=== PATIENT | male | born 1975 | race Caucasian/White ===

== ENCOUNTER → 2021-10-23 10:49 | Outpatient (CLI) | payer BC, SELFPAY ==
[2021-10-23 12:12] LABS: Alanine Aminotransferase 26 U/L (12-78); Albumin Level 4.1 g/dl (3.5-5.0); Albumin/Globulin Ratio 1.7 (1.1-1.8); Alkaline Phosphatase 87 U/L (38-126); Anion Gap 8.5 mEq/L (5-15); Aspartate Amino Transferase 33 U/L (17-59); Bilirubin,Total 2.7 mg/dl (0.2-1.3); Blood Urea Nitrogen 21 mg/dl (9-20); Calcium 9.2 mg/dl (8.4-10.2); Carbon Dioxide 29 mmol/L (22.0-30.0); Chloride 106 mmol/L (98-107); Chol/HDL Ratio 3.4 (1-3.5); Cholesterol 200 mg/dl (140-200); Estimated Glomerular Filt Rate 72 ml/min (>60); GFR (African American) 87 ML/MIN (>60); Globulin 2.4 g/dL (1.3-3.2); Glucose 103 mg/dl (74-100); HDL Cholesterol 59 mg/dl (40-60); Potassium 4.5 mmoL/L (3.5-5.1); Sodium 139 mmol/L (136-145); Total Protein,Serum 6.5 g/dl (6.3-8.2); Triglycerides 46 mg/dl (30-150); VLDL Cholesterol 9 mg/dL (0-40)
[2021-10-23 12:23] LABS: Direct LDL Cholesterol 110.52 mg/dL (100-129)
[2021-10-23 12:43] LABS: Thyroid Stimulating Hormone 1.42 uIU/mL (0.465-4.68)
[2021-10-23 14:16] LABS: Microalbumin/Creatinine Ratio 4.2
[2021-10-23 14:21] LABS: Creatinine,Urine Random 181 mg/dL (Not Estab.)
== END ==
PROVIDERS: PCP Family Medicine; Visit Provider Family Medicine
DX: E10.9 Type 1 diabetes mellitus without complications (principal)
CPT/HCPCS: 36415; 80053; 80061; 82043; 82570; 84443

== ENCOUNTER 2024-10-23 08:58 | Emergency (ER) | payer SELFPAY ==
--- OUTSIDE RECORDS SUMMARY | 2024-03-04 10:30 | XMS_ITS ---
Author Organization [facility] Address [facility] [address] [place] [id number] Care Team Providers Care Sonar Technician Name Role Phone Keon Villanueva Primary Care Provider Damian Mock [phone] Allergies Allergen (clinical drug ingredient) Drug/Non Drug Allergy documented on EMR Reaction Allergy Type Onset Date Status hydrocortisone Cortizone-10 raise blood sugar Drug Allergy Active REASON FOR VISIT cdl physical Encounters Encounter Location Date Provider Diagnosis [facility] [address] [place] [phone] 03/04/2024 Damian Mock Plan Of Treatment No Information Progress Notes * DENISE JANSEN IIOB:[birth year] (49 yo M)Acc No.[id number]:03/04/2024 Physical Patient: GRISEL FARFAN II Provider: Malick Mock M.D. :1975 A ge:48 Y S ex:Male Date:03/04/2024 Address:[facility] [address], [id number] Pcp:Keon Villanueva Subjective: * Chief Complaints: * 1 . Cdl physical. 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 * ROS: D ERMATOLOGY: no R timbo. n o H mohsen. G ASTROENTEROLOGY: no N ausea. n o V omiting. U ROLOGY: no D ifficulty urinating. n o B lood in urine. * Medical History: T ype 1 Diabetes, Diabetic Retinopathy. * Surgical History: T onsillectomy , Appendectomy 2005, Cholecystectomy 06/2012. * Hospitalization/Major Diagno stic Procedure: D iabetes , Low Blood Sugar- [facility] 08/2013. * Family History: F ather: alive 57 yrs. M other: alive 57 yrs. 1 sister(s) . 3 son(s) . . * Social History: C URRENT TOBACCO USE S moking Status: Patient does NOT smoke. C affeine: yes, frequency:diet mt. dew QD. Home smoke detector use: yes. Marital Status: . Past smoking status: no. Alcohol: No. Sexually active: yes. * Allergies: C ortizone-10: raise blood sugar. Objective: * Vitals: Assessment: Plan: * Treatment: * Procedure Codes: 8 1002 Urinalysis, no micro * Images: Billing Information: * Visit Code: * Procedure Codes: 65321 Urinalysis, no micro. * Electronic signature of Tawana Mock MD on 10/23/2024 at 09:13 AM EDT Sign off status: Pending * Provider: Malick Mock M.D. 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
--- OUTSIDE RECORDS SUMMARY | 2024-03-06 06:45 | XMS_ITS ---
Author Organization [facility] Address [address] [facility] [address] [place] [id number] Care Team Providers Care Trustee Of Estate Name Role Phone Keon Villanueva Primary Care Provider Damian Mock Unavailable [phone] Allergies Allergen (clinical drug ingredient) Drug/Non Drug Allergy documented on EMR Reaction Allergy Type Onset Date Status hydrocortisone Cortizone-10 raise blood sugar Drug Allergy Active Results Component Value Reference Range Notes Urinalysis - Inhouse Reviewed date:03/06/2024 11:11:08 AM Interpretation: Performing Lab: Notes/Report: Color/Clarity yellow/clear Leuk Neg Nitrite Neg Urobili 3.2 Protein Neg pH 5.5 Blood Neg Sp. Gr. 1.020 Ketone Neg Bili Neg Gluc 2+ REASON FOR VISIT CDL CPX Medications Medication SIG (Take, Route, Frequency, Duration) Notes Start Date End Date Status Basaglar KwikPen 100 UNIT/ML as directed Subcutaneous Act tea Dexcom G6 Transmitter - as directed Active HumaLOG 100 UNIT/ML as directed Injection Active Farxiga 10 MG Take 1 tablet by once daily; Duration: 90 Active Dexcom G6 Sensor - as directed Active Vital Signs Blood pressure systolic 120 mm Hg 03/06/20 24 Blood pressure diastolic 78 mm Hg 024 Heart Rate 59 /min 03/06/2024 Height 74.50 in 03/06/2024 Weight 248 lbs 03/06/2024 BMI 31.41 kg/m2 03/06/2024 Encounters Encounter Location Date Provider Diagnosis [facility] [address] [facility] [address] [place] [phone] 03/06/2024 Damian Mock Encounter for Depart ment of Transportation (DOT) examination for coral license Z02.4 Assessments Encounter Date Diagnosis (ICD Code) Assessment Notes Treatment Notes Treatment Clinical Notes Section Notes 03/06/2024 Encounter for Department of Transportation (DOT) examination for coral license (ICD-10 - Z02.4) Plan Of Treatment Next Appt Details Follow Up: prn, Reason: Progress Notes * DENISE JANSEN IIOB:[birth year] (49 yo M)Acc No.[id number]:03/06/2024 Physical Patient: GRISEL FARFAN II Provider: Malick Mock M.D. :1975 A ge:48 Y S ex:Male Date:03/06/2024 Address:[address] [place] [address], [place], [id number] Pcp:Keon Villanueva Subjective: * Chief Complaints: * 1 . CDL CPX. * HPI: H PI: 48 year old [...] 06/2012. * Hospitalization/Major Diagno stic Procedure: D iaazar , Low Blood Sugar- [facility] ER 08/2013. * Family History: F ather: alive 57 yrs. M other: alive 57 yrs. 1 sister(s) . 3 son(s) . . * Social History: C URRENT TOBACCO USE S moking Status: Patient does NOT smoke. C affeine: yes, frequency:diet mt. dew QD. Home smoke detector use: yes. Marital Status: . Past smoking status: no. Alcohol: No. Sexually active: yes. * Medications: T aking Basaglar KwikPen 100 UNIT/ML Solution Pen-injector as directed Subcutaneous , Taking HumaLOG 100 UNIT/ML Solution as directed Injection , Taking Dexcom G6 Transmitter - Miscellaneous as directed , Taking Dexcom G6 Sensor - Miscellaneous as directed , Taking Farxiga 10 MG Tablet Take 1 tablet by mouth once daily , Medication List reviewed and reconciled with the patient * Allergies: C ortizone-10: raise blood sugar. Objective: * Vitals: W t:248, Temp:98.0, BP:120/78, HR:59, Nurse:boni, Ht: 74.50, Visual Acuity: Left eye:20/15, Right eye:20/15, Both eyes:20/15, Color:Pass, Comments:With glasses, BMI:31.41. * Examination: G eneral Examination: General Appearance: N AD. H EENT: u nremarkable.?Oral cavity: n o lesions, mucosa moist and WNL, no erythema. N hailee: s upple, no lymphadenopathy. C hest: n ormal shape and expansion. H eart: R SR. L ungs: c lear to auscultation. A bdomen: bowel sounds present, soft and nontender. N eurologic Exam: I ntact, gait normal. S kin: n ormal, no rash. P eripheral pulses: n ormal (2+) bilaterally. E xtremities: n o leg edema. Assessment: * Assessment: 1. E ncounter for Department of Transportation (DOT) examination for coral license - Z02.4 (Primary) Plan: * Treatment: Value Reference Range C olor/Clarity yellow/clear * L euk Neg * N itrite Neg * U robili 3.2 * P rotein Neg * p H 5.5 * B lood Neg * S p. Gr. 1.020 * K etone Neg * B alyce Neg * G nhan 2+ * Nela Guthrie 03/06/2024 10:41: 25 AM > , Provider reviewed results while patient in office. * Procedure Codes: 8 1002 Urinalysis, no micro, 36838 VISUAL ACUITY SCREEN * Follow Up: p rn * Images: Billing Information: * Visit Code: 72300 Preventive Care Est Pt Age 40-64. * Procedure Codes: 20376 Urinalysis, no micro. 54314 VISUAL ACUITY SCREEN. * Electronic signature of Tawana n Paoli , MD on 10/23/2024 at 09:13 AM EDT Sign off status: Pending * Provider: Malick Mock M.D. 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
[2024-10-23 09:13] VITALS: BP 136/82; PULSE 98; RESP 20; TEMP 37.1; O2SAT 97; BMI 31.4
--- OUTSIDE RECORDS SUMMARY | 2024-10-23 09:13 | XMS_ITS | Encounter Summary ---
[facility] Address [address] [phone] Care Team Providers Care Inbound Call Center Agent Name Role Phone Bernrado Villanueva MD Primary Care Provider [phone] Reason for Visit * Reason Comments Med Refill Encounter Details Date Type Department Care Team (Late st Contact Info) Description 09/08/2024 Refill [facility] ENDOCRINOLOGY [address] [facility] [address] [place] [phone] Meghan Lovelace PA 3084 [facility] [address] [place], [place] [phone] Social History Tobacco Use Types Packs/Day Years Used Date Smoking Tobacco: Never Smokeless Tobacco: Never Alcohol Use Standard Drinks/Week Comments Never 0 (1 standard drink = 0.6 oz pur e alcohol) AUDIT-C Answer Date Recorded Q1: How often do you have a drink containing alc ohol? Never 02/17/2020 Average Number of Drinks Not on file 020 Frequency of Binge Drinking Not on file 01/26 Sex and Gender Information Value Date Recorded Sex Assigned at Not on file Legal Sex Male 2:53 PM EDT Gender Identity Not on file Sexual Orientation Not on file documented as of this encounter Miscellaneous Notes * Telephone Encounter - Pankaj Regan MA - 09/09/2024 11:40 AM EDT Rx Refill Note Requested Prescriptions Pending Prescriptions Disp Refills HumaLOG KwikPen 100 UNIT/ML solution pen-injector [Pharmacy Med Name: HumaLOG KwikPen 100 UNIT/ML Subcutaneous Solution Pen-injector] 80 mL 0 Sig: INJECT 1 UNIT UNDER THE SKIN PER 12 GRAMS OF CARBS PLUS CORRECTION (MAX DAILY DOSE 80 UNITS) Last office visit with prescribing clinician: 02/27/2024 Next office visit with prescribing clinician: 12/17/2024 } Pankaj Regan MA 09/09/24, 11:41 EDT documented in this encounter Plan of Treatment Upcoming Encounters Date Type Department Care Team (Late st Contact Info) Description 12/17/2024 10:45 AM EDT Office Visit [facility] ENDOCRINOLOGY [address] [phone] Shawn Dunn MD 1775 [facility] [place] [address] documented as of this encounter Visit Diagnoses Not on filedocumented in this encounter Care Teams Inbound Call Center Agent Relationship Specialty Start Date End Date Bernardo Villanueva MD [facility] [facility] [address] [place] [phone] PCP - General Family Medicine 11/03/20 documented as of this encounter
--- OUTSIDE RECORDS SUMMARY | 2024-10-23 09:13 | XMS_ITS | Encounter Summary ---
Author Organization [facility] Address [address] [place] [address] Care Team Providers Care Sagger Filler Name Role Phone Bernardo Villanueva MD Primary Care Provider [phone] Reason for Visit * Reason Onset Date Comments MEDCONCERN 09/16/2024 Encounter Details Date Type Department Care Team (Late st Contact Info) Description 09/16/2024 Telephone [facility] END[facility] [employer] [address] [phone] Shawn Dunn MD [facility] [employer] [address] [address] MEDCONCERN Social History Tobacco Use Types Packs/Day Years [...] encounter Miscellaneous Notes * Telephone Encounter - Mikael Nina MA - 09/16/2024 1:29 PM EDT Rx Refill Note Requested Prescriptions Pending Prescriptions Disp Refills Insulin Pen Needle (BD Pen Needle Short Ultrafine) 31G X 8 MM misc 200 each 1 Sig: USE UP TO 9 TIMES DAILY WITH INSULIN Continuous Glucose Sensor (Dexcom G6 Sensor) 9 each 1 Sig: Use Every 10 (Ten) Days. Continuous Glucose Transmitter (Dexcom G6 Transmitter) misc 1 each 1 Sig: Use 1 each Every 3 (Three) Months. HumaLOG KwikPen 100 UNIT/ML solution pen-injector 80 mL 1 Sig: INJECT 1 UNIT UNDER THE SKIN PER 12 GRAMS OF CARBS PLUS CORRECTION (MAX DAILY DOSE 80 UNITS) insulin glargine (LANTUS, SEMGLEE) 100 UNIT/ML injection 45 mL 1 Sig: Inject 50 units daily. Last office visit with prescribing clinician: 02/27/2024 Next office visit with prescribing clinician: 12/17/2024 Mikael Nina MA 09/16/24, 13:29 EDT * Telephone Encounter - Concepcion Spann RegSched Rep - 09/16/2024 8:43 AM EDT Caller: Chau Wallis Relationship: Self Best call back number: Telephone Information: What was the call regarding: PT CALLED WANTING TO SEND ALL OF PT PRESCRIPTIONS TO [facility] [address]-6 - [phone] - [phone] FX FOR 90 DAY SUPPLIES. PLEASE ADVISE. documented in this encounter Plan of Treatment Upcoming Encounters Date Type Department Care Team (Late st Contact Info) Description 12/17/2024 10:45 AM EDT Office Visit [facility] ENDOCR[facility]Y [address] [phone] Shawn Dunn MD [address] [address] documented as of this encounter Visit Diagnoses Not on filedocumented in this encounter Care Teams Sagger Filler Relationship Specialty Start Date End Date Bernardo Villanueva MD [facility] [place] [facility] 36 E [facility] [address] [place] [address] PCP - General Family Medicine 11/03/20 documented as of this encounter
--- OUTSIDE RECORDS SUMMARY | 2024-10-23 09:13 | XMS_ITS | Encounter Summary ---
[facility] Address [address] [place] [address] Care Team Providers Care Activities Aide Name Role Phone Bernardo Villanueva MD Primary Care Provider [phone] Reason for Visit * Reason Onset Date Comments MED REFILL ISSUE 09/18/2024 Encounter Details Date Type Department Care Team (Late st Contact Info) Description 09/18/2024 Telephone [facility] ENDOCRINOLOGY [address] [phone] Shawn Dunn MD [facility] [address] [address] MED REFILL ISSUE Social History Tobacco Use Types Packs/Day Years [...] encounter Miscellaneous Notes * Telephone Encounter - Shawn Dunn MD - 09/18/2024 9:42 AM EDT Tresiba sent; The most pens I can send is 400.. I sent that * Telephone Encounter - Maria G Pritchett MA - 09/18/2024 8:58 AM EDT Received denial from insurance. It states that Tresiba and Toujeo are preferred. * Telephone Encounter - Nilda Alberts RegSched Rep - 09/18/2024 8:28 AM EDT Caller: Chau Wallis Relationship to patient: Self Best call back number: [phone] Patient is needing: PT SAID HE WAS SUPPOSED TO RECEIVE A 90 DAY SUPPLY OF THE Insulin Pen Needle (BD Pen Needle Short Ultrafine) 31G X 8 MM misc BUT ONLY 200 WAS FILLED INSTEAD OF ABOUT 800. PLEASE ADVISE. PT IS ALSO STRUGGLING TO GET THE insulin glargine (LANTUS, SEMGLEE) 100 UNIT/ML injection REFILLED,AND WANTED TO SEE IF THERE WAS SOMETHING ELSE LIKE TOUJEO THAT WOULD BE COVERED BY HIS INSURANCE. PT IS ON HIS LAST INSULIN PEN. PLEASE ADVISE. documented in this encounter Plan of Treatment Upcoming Encounters Date Type Department Care Team (Late st Contact Info) Description 12/17/2024 10:45 AM EDT Office Visit [facility] ENDOCR[facility]OLOG[facility] 1774 [facility] 50 [place] [phone] Shawn Dunn MD 177 [facility] 50 [place] [address] documented as of this encounter Visit Diagnoses Not on filedocumented in this encounter Care Teams Activities Aide Relationship Specialty Start Date End Date Bernardo Villanueva MD 1210 [facility] 36 E [facility] [address] [place] [address] PCP - General Family Medicine 11/03/20 documented as of this encounter
--- OUTSIDE RECORDS SUMMARY | 2024-10-23 09:13 | XMS_ITS | Encounter Summary ---
Author Organization [facility] Address [address] [place] [address] Care Team Providers Care Bridal Consultant Name Role Phone Bernardo Villanueva MD Primary Care Provider [phone] Encounter Details Date Type Department Care Team (Late st Contact Info) Description 09/11/2024 Refill [facility] ENDOCRINOLOGY 3084 [facility] 100 [place] [address] Shawn Dunn MD 5578 [facility] 50 [place], [place] [phone] Social History Tobacco Use Types Packs/Day Years [...] encounter Miscellaneous Notes * Telephone Encounter - Trish Guo MA - 09/11/2024 3:53 PM EDT Rx Refill Note Requested Prescriptions Pending Prescriptions Disp Refills insulin glargine (LANTUS, SEMGLEE) 100 UNIT/ML injection 15 mL 2 Sig: Inject 50 units daily. Last office visit with prescribing clinician: 02/27/2024 Next office visit with prescribing clinician: 12/17/2024 Trish Guo MA 09/11/24, 15:53 EDT * Telephone Encounter - Devan Haider PCT - 09/11/2024 2:41 PM EDT [facility] [place] CALLED REQUESTING RX FOR LANTUS BE SENT IN FOR THIS PT. SEMGLEE IS NOT COVERED AND PT WANTS US TO DO A PA FOR LANTUS. documented in this encounter Plan of Treatment Upcoming Encounters Date Type Department Care Team (Late st Contact Info) Description 12/17/2024 10:45 AM EDT Office Visit [facility] ENDOCRINOLOGY [address] [phone] Shawn Dunn MD [address] [address] documented as of this encounter Visit Diagnoses Not on filedocumented in this encounter Care Teams Bridal Consultant Relationship Specialty Start Date End Date Bernardo Villanueva MD 1210 [facility] [address] [place] [address] PCP - General Family Medicine 11/03/20 documented as of this encounter
--- OUTSIDE RECORDS SUMMARY | 2024-10-23 09:13 | XMS_ITS | Patient Health Record ---
[facility] Address [address] [place] [id number] Care Team Providers Care Finishing Pan Operator Name Role Phone Keon Villanueva Primary Care Provider [phone] Damian Mock Unavailable [phone] Allergies Allergen (clinical drug ingredient) Drug/Non Drug [...] 1.020 Ketone Neg Bili Neg Gluc 2+ Reason For Referral No Information Medications Medication SIG (Take, Route, Frequency, Duration) Notes Start Date End Date Status Basaglar KwikPen 100 UNIT/ML as directed Subcutaneous Act tea Dexcom G6 Transmitter - as directed Active HumaLOG 100 UNIT/ML as directed Injection Active Dexcom G6 Sensor - as directed Active Farxiga 10 MG Take 1 tablet by julio th once daily for 90 days; Duration: 90 Active Immunizations Vaccine Route Administration Date Status Comme nts COVID 19 Pfizer Unknown 06/03/2020 Administered COVID 19 Pfizer Unknown 07/01/2020 Administered Problems Problem Type SNOMED Code ICD Code Onset Dates Problem Status W/U Status Risk Notes Problem Hyperlipidemia (50775832) Hyperlipidemia (272.4) Active confirmed Problem Retinopathy (03732530) Retinopathy (362.10) Active confirmed Problem Type II diabetes mellitus without complication (651135997) Diabetes (E11.9) Active confirmed Problem Type I diabetes mellitus (32058844) Type I diabetes mellitus (E10.9) Active confirmed Problem Male erectile disorder (171466800) Male erectile disorder (N52.9) Active confirmed Problem Type I diabetes mellitus without complication (892556490) Diabetes mellitus, insulin dependent (IDDM), controlled (250.01) Active confirmed Problem Hyperglycemia due to type 2 diabetes mellitus (096383742649561) Poorly controlled diabetes mellitus (E11.65) Active confirmed Problem Type I diabetes mellitus without complication (398304582) Type 1 diabetes mellitus without complication (E10.9) Active confirmed Problem Reactive depression (67815745) Reactive depression (F32.9) Active confirmed Vital Signs Heart Rate 59 /min 03/06/2024 Blood pressure diastolic 78 mm Hg 03/06/2024 Height 74.50 in 03/06/2024 Blood pressure systolic 120 mm Hg 03/06/2024 Weight 248 lbs 03/06/2024 BMI 31.41 kg/m2 03/06/2024 Encounters Encounter Location Date Provider Diagnosis [facility] [address] [place], [place] [phone] 03/06/2024 Damian Mock Encounter for Depart ment of Transportation (DOT) examination for coral license Z02.4 Assessments Encounter Date Diagnosis (ICD Code) Assessment Notes Treatment Notes Treatment Clinical Notes Section Notes 03/06/2024 Encounter for Department of Transportation (DOT) examination for coral license (ICD-10 - Z02.4) Plan Of Treatment No Information Insurance Providers Payer Name Payer Address Payer Phone Subscriber Number Group Number Insured Name Patient Relationship to Insured Coverage Start Date Coverage End Date [employer] [address] [place] [address] [id number] GRISEL JANSEN II Self - patient is the insured Medical (General) History Medical History History ICD Code Type 1 Diabetes Diabetic Retinopathy Surgical History Surgery Date(Month/Year) Tonsillectomy Appendectomy 2005 Cholecystectomy 06/2012 Hospitalization History Reason Date(Month/Year) Diabetes Low Blood Sugar- [facility] ER 08/2013
--- OUTSIDE RECORDS SUMMARY | 2024-10-23 09:13 | XMS_ITS | Clinical Summary ---
Author Organization [facility] Address [address] [place] [address] Care Team Providers Care Curator Of Manuscripts Name Role Phone Bernardo Villanueva MD Primary Care Provider [phone] Social History Tobacco Use Types Packs/Day Years Used Date Smoking Tobacco: Never Alcohol Use Standard Drinks/Week Comments No 0 (1 standard drink = 0.6 oz pur e alcohol) Sex and Gender Information Value Date Recorded Sex Assigned at Not on file Legal Sex Male 8:11 PM EDT Gender Identity Not on file Sexual Orientation Not on file Last Filed Vital Signs Vital Sign Reading Time Taken Comments Blood Pressure - - Pulse - - Temperature - - Respiratory Rate - - Oxygen Saturation - - Inhaled Oxygen Concentration - - Weight 108 kg (237 lb 7 oz) 06/02/2015 9:[address] Height 188 cm (6' 2 ) 04/22/2014 8:53 AM EST Body Mass Index 30.48 04/22/2014 8:53 AM EST Plan of Treatment Not on file Care Teams Curator Of Manuscripts Relationship Specialty Start Date End Date Bernardo Villanueva MD [address] [place] [address] PCP - General 08/07/20
--- OUTSIDE RECORDS SUMMARY | 2024-10-23 09:13 | XMS_ITS | Encounter Summary ---
[facility] Address [address] [place] [address] Care Team Providers Care Drafter Structural Name Role Phone Bernardo Villanueva MD Primary Care Provider [phone] Encounter Details Date Type Department Care Team (Late st Contact Info) Description 09/12/2024 Prior Authorization [facility] ENDOCRINOLOGY 30[address] [facility] 100 [place] [address] Shawn Dunn MD 1779 [facility] [address] [place], [place] [phone] Social History Tobacco Use Types Packs/Day Years [...] encounter Miscellaneous Notes * Telephone Encounter - Maria G Pritchett MA - 09/12/2024 3:24 PM EDT PA for Lantus submitted via [facility]. documented in this encounter Plan of Treatment Upcoming Encounters Date Type Department Care Team (Late st Contact Info) Description 12/17/2024 10:45 AM EDT Office Visit [facility] ENDOCRINOLOGY [address] [phone] Shawn Dunn MD 1775 [facility] 50 [place], [place] [phone] documented as of this encounter Visit Diagnoses Not on filedocumented in this encounter Care Teams Drafter Structural Relationship Specialty Start Date End Date Bernardo Villanueva MD 1210 [facility] 36 E [facility] 2 [place] [address] PCP - General Family Medicine 11/03/20 documented as of this encounter
--- OUTSIDE RECORDS SUMMARY | 2024-10-23 09:13 | XMS_ITS | Encounter Summary ---
[facility] Address [address] [place] [address] Care Team Providers Care Sorting Grapple Operator Name Role Phone Bernardo Villanueva MD Primary Care Provider [phone] Reason for Visit * Reason Comments Med Refill Encounter Details Date Type Department Care Team (Late st Contact Info) Description 09/08/2024 Refill [facility] END[facility] [address] [phone] Nadeem Okeefe MD [address] [address] Social History Tobacco Use Types Packs/Day Years [...] encounter Miscellaneous Notes * Telephone Encounter - Barbra Desouza - 09/09/2024 2:21 PM EDT Rx Refill Note Requested Prescriptions Pending Prescriptions Disp Refills Continuous Glucose Sensor (Dexcom G6 Sensor) [Pharmacy Med Name: DEXCOM G6 SENSOR MIS] 9 each 0 Sig: USE 1 SENSOR EVERY 10 DAYS BD Pen Needle Short Ultrafine 31G X 8 MM misc [Pharmacy Med Name: BD UF SHRT PEN NDL [id number] MIS] 100 each 0 Sig: USE UP TO 9 TIMES DAILY WITH INSULIN Last office visit with prescribing clinician: 02/27/2024 Next office visit with prescribing clinician: 12/17/2024 documented in this encounter Plan of Treatment Upcoming Encounters Date Type Department Care Team (Late st Contact Info) Description 12/17/2024 10:45 AM EDT Office Visit [facility] [address] [phone] Shawn Dunn MD [address] [address] documented as of this encounter Visit Diagnoses Not on filedocumented in this encounter Care Teams Sorting Grapple Operator Relationship Specialty Start Date End Date Bernardo Villanueva MD [address] [facility] [address] [facility] [address] [place] [address] PCP - General Family Medicine 11/03/20 documented as of this encounter
--- OUTSIDE RECORDS SUMMARY | 2024-10-23 09:14 | XMS_ITS | Clinical Summary ---
[facility] Organization [facility] Address [address] [place] [address] Care Team Providers Care Auto Electrician Name Role Phone Bernardo Villanueva MD Primary Care Provider [phone] Allergies No known active allergies Medications Farxiga 10 MG tablet Take 10 mg by mouth Daily. 0 Active Continuous Glucose Sensor (Dexcom G6 Sensor) Use Every 10 (Ten) Days. 9 each 1 5 Active Continuous Glucose Transmitter (Dexcom G6 Transmitter) misc Use 1 each Every 3 (Three) Months. 1 each 1 5 Active HumaLOG KwikPen 100 UNIT/ML solution pen-injector INJECT 1 UNIT UNDER THE SKIN PER 12 GRAMS OF CARBS PLUS CORRECTION (MAX DAILY DOSE 80 UNITS) 80 mL 1 5 Active Insulin Pen Needle (BD Pen Needle Short Ultrafine) 31G X 8 MM misc USE UP TO 9 TIMES DAILY WITH INSULIN 400 each 1 5 Active insulin degludec (Tresiba FlexTouch) 100 UNIT/ML solution pen-injector injection Inject 50 Units under the skin into the appropriate area as directed Daily. 45 mL 3 5 Active Active Problems Problem Noted Date Diagnosed Date Uncontrolled type 1 diabetes mellitus with hyper glycemia 02/15/2021 Assessment & Plan (02/27/2024 11:49 AM EST): Eyes- done in noveber Feet- checked today Kidneys- justyan ordered today Lipids done elsewhere Assessment- stable. But has post lunch hyperglcyemia Plan : more insulin at lunch Assessment & Plan (08/22/2023 9:39 AM EDT): Stable Plan : no changes, Assessment & Plan (02/20/2023 11:22 AM EST): Improved. No changes are needed Assessment & Plan (08/18/2022 10:13 AM EDT): Unchanged. Acceptable. Not ideal No changes are needed Assessment & Plan (02/15/2022 10:47 AM EST): a1c improved at 7.7 No real changes are needed Assessment & Plan (08/10/2021 10:08 AM EDT): Diabetes is worsening. due to seasonal allergies Diabetes will be reassessed in 6 months. Based upon the data on his dexcom I advised him to increase his insulin at supper Assessment & Plan (02/15/2021 10:51 AM EST): Diabetes is unchanged. Continue current treatment regimen. Diabetes will be reassessed in 6 months. Resolved Problems Problem Noted Date Diagnosed Date Resolved Date Controlled type 2 diabetes james agustin without complication, with long-term current use of insulin 02/17/2020 11/03/2020 Diabetic hypoglycemia 02/17/20202020 Assessment & Plan (02/17/2020 3:07 PM EST): Minimal issues with hypoglycemia and The sensor warns him before its an issue Encounters Date Type Department Care Team Description 09/18/2024 Telephone [facility] END[facility]CR[facility]OLOG[facility] [address] [address] Shawn Dunn MD MED REFILL ISSUE 09/16/2024 Telephone [facility] [address] [phone] Shawn Dunn MD MEDCONCERN 09/12/2024 Prior Authorization [facility] [address] [facility] [address] [place] [address] Shawn Dunn MD 09/11/2024 [facility] [address] [facility] [address] [place] [address] Shawn Dunn MD 09/08/2024 [facility] [address] [facility] [address] [place] [address] Nadeem Okeefe MD 09/08/2024 [facility] [address] [facility] [address] [place] [address] Meghan Lovelace PA from Last 3 Months Immunizations Immunization Administration Dates Next Due COVID-19 (PFIZER) Purple Cap Monovalent 07/02/19 21,06/03/2020 Family History Medical History Relation Name Comments Diabetes Father Hypertension Father No Known Problems Mother Relation Name Status Comments Father Alive Mother Alive Social History Tobacco Use Types Packs/Day Years Used Date Smoking Tobacco: Never Smokeless Tobacco: Never Tobacco Cessation:Counseling Given: Not Answered Alcohol Use Standard Drinks/Week Comments Never 0 [...] Sign Reading Time Taken Comments Blood Pressure 124/74 02/27/2024 9:25 AM EST Pulse 61 02/27/2024 9:25 AM EST Temperature 37 C (98.6 F) 02/17/2020 2:32 PM EST Respiratory Rate 16 11/03/2020 1:14 PM EDT Oxygen Saturation 100% 02/27/2024 9:25 AM EST Inhaled Oxygen Concentration - - Weight 110 kg (243 lb) 02/27/2024 9:25 AM EST Height 188 cm (6' 2 ) 02/27/2024 9:25 AM EST Body Mass Index 31.2 02/27/2024 9:25 AM EST Plan of Treatment Upcoming Encounters Date Type Department Care Team (Late st Contact Info) Description 12/17/2024 10:45 AM EDT Office Visit [facility] [address] [phone] Shawn Dunn MD [address] [address] Health Maintenance Due Date Last Done Comments Hepatitis B (1 of 3 - 19+ 3- dose series) 07/17/1994 Pneumococcal Vaccine 0-49 (1 of 2 - PCV) 07/17/1994 TDAP/TD VACCINES (1 - Tdap) 07/17/1994 ANNUAL PHYSICAL 02/17/2020 HEPATITIS C SCREENING 02/17/2020 COLOGUARD 07/17/2020 COLON CANCER SCREENING 5 YEA R SIGMOIDOSCOPY 07/17/2020 COLONOSCOPY 07/17/2020 COLORECTAL CANCER SCREENING 07/17/2020 CT COLONOGRAPHY 07/17/2020 FECAL OCCULT BLOOD TEST 07/17/2020 FIT Testing (1 year) 07/17/2020 DIABETIC EYE EXAM 03/09/2023 03/09/2022 (Kalyan paul-Reported (Performed Externally)), 03/11/2021 COVID-19 Vaccine (3 2023-2 5 season) 2023 07/01/2020, 06/03/2020 HEMOGLOBIN A1C 08/27/2024 02/27/2024, 0510/2023, 02/20/2023, Additional history exists INFLUENZA VACCINE 12/25/2024 DIABETIC FOOT EXAM 02/26/2025 02/27/2024, 1 04/29/2023, 08/22/2023, Additional history exists URINE MICROALBUMIN-CREATININ E RATIO (uACR) 02/27/2025 02/28/2024 Procedures Procedure Name Priority Date/Time Associated Diagnosis Comments POCT GLYCOSYLATED HEMOGLOBIN (HGB A1C) Routine 02/27/2024 9:35 AM EST Uncontrolled type 1 diabetes mellitus with hyperglycemia from Last 3 Months or Most Recently Relevant to Health Maintenance Results * (ABNORMAL) POC Glycosylated Hemoglobin (Hb A1C) (02/27/2024 9:35 AM EST) Hemoglobin A1C 7.4(A) 4.5 - 5.7 % [facility] Lot Number [id number] [facility] Expiration Date 11/01/25 [facility] Blood 02/27/2024 9:35 AM EST Shawn Dunn MD POINT OF CARE TEST ORD ERABLES Final Result [facility]
[address] [place] [phone], from Last 3 Months or Most Recently Relevant to Health Maintenance Insurance [facility] PPO Care Teams Auto Electrician Relationship Specialty Start Date End Date Bernardo Villanueva MD [address] [place] [address] [place] [address] PCP - General Family Medicine 11/03/20
[2024-10-23 09:25] VITALS: BP 136/82; PULSE 98; RESP 20; TEMP 37.1; O2SAT 97
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
--- NOTE | 2024-10-23 09:54 | PC.NURSE ---
called lab to let know of drug testing for blood & urine
[2024-10-23 10:15] VITALS: BP 136/92; PULSE 80; RESP 20; TEMP 37.1; O2SAT 98
[2024-10-23 10:22] LABS: Amphetamine/Metha Screen,Urine Negative ng/ml (<1000)
[2024-10-23 10:23] LABS: Barbiturates Screen,Urine Negative ng/ml (<200); Benzodiazepines Screen,Urine Negative ng/ml (<200)
[2024-10-23 10:25] LABS: Methadone Screen,Urine Negative ng/ml (<300)
[2024-10-23 10:26] LABS: Opiate Screen,Urine Negative ng/ml (<300); Phencyclidine Screen,Urine Negative ng/ml (<25)
== END 2024-10-23 10:16 | disposition home or self-care (01) ==
PROVIDERS: Emergency Provider Emergency Medicine; PCP Family Medicine
DX: Z02.83 Encounter for blood-alcohol and blood-drug test (principal); V89.2XXA Person injured in unspecified motor-vehicle accident, traffic, initial encounter
CPT/HCPCS: 80307; 80320; 99283